=== PATIENT | male | born 1965 | race Asian ===

== ENCOUNTER 2019-09-12 11:36 | Emergency (ER) | payer OTHER ==
--- NOTE | 2019-09-12 12:11 | ED Physician Documentation ---
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 That evening he developed hives throughout his entire body. He has had hives 1 time previously 30 years ago. He does not think he is using any new cleaning equipment or protective gear that he has not used previously. He is not having any respiratory difficulty. Review of Systems Constitutional: denies: Fever, Chills, Myalgias Eyes: denies: Decreased vision Throat: denies: Sore throat Cardiac: denies: Chest pain / pressure, Palpitations Respiratory: denies: Dyspnea, Cough GI: denies: Abdominal Pain, Abdominal Swelling : denies: Dysuria Skin: reports: Rash Musculoskeletal: denies: Neck pain, Back pain, Extremity pain Neurologic: denies: Generalized weakness, Focal weakness, Numbness PD PAST MEDICAL HISTORY - Past Medical History Cardiovascular: None Respiratory: None Neuro: None Endocrine/Autoimmune: None GI: None : None HEENT: None Psych: None Musculoskeletal: None Derm: None - Past Surgical History Past Surgical History: No - Present Medications Home Medications: Ambulatory Orders Medication Instructions Recorded Confirmed predniSONE [Prednisone] 40 mg PO DAILY #10 tablet 09/12/19 - Allergies Allergies/Adverse Reactions: Allergies Allergy/AdvReac Type Severity Reaction Status Date / Time amoxicillin Allergy Unknown Verified 09/12/19 11:40 sulfamethoxazole Allergy Unknown Verified 09/12/19 11:40 [From ] trimethoprim [From ] Allergy Unknown Verified 09/12/19 11:40 - Social History Does the pt smoke?: No Smoking Status: Never smoker Does the pt drink ETOH?: No Does the pt have substance abuse?: No - Immunizations Immunizations are current?: Yes - POLST Patient has POLST: No PD ED PE NORMAL - Vitals Vital signs reviewed: Yes (hypertensive) - General General: Alert and oriented X 3, No acute distress, Well developed/nourished - HEENT HEENT: Atraumatic, PERRL, EOMI - Neck Neck: Supple, no meningeal sign, No bony TTP - Cardiac Cardiac: RRR, No murmur - Respiratory Respiratory: No respiratory distress, Clear bilaterally - Abdomen Abdomen: Soft, Non tender - Back Back: No CVA TTP, No spinal TTP - Derm Derm: Normal color, Warm and dry, Other (There are urticaria sporadically over the entire body. There is more erythema associated with the forearms and the dorsum of the hands.) - Extremities Extremities: No deformity, No edema, No calf tenderness / cord - Neuro Neuro: Alert and oriented X 3, quarter trimmer 2-12 intact, No motor deficit, No sensory deficit, Normal speech Eye Opening: Spontaneous Motor: Obeys Commands Verbal: Oriented GCS Score: 15 - Psych Psych: Normal mood, Normal affect Results - Vitals Vitals: Vital Signs - 24 hr 09/12/19 09/12/19 11:39 12:29 Temperature 37 C 37.3 C Heart Rate 100 85 Respiratory 18 24 Rate Blood Pressure 162/97 H 139/72 H O2 Saturation 98 98 Oxygen O2 Source Room air PD MEDICAL DECISION MAKING - ED course Complexity details: considered differential, d/w patient ED course: 53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 He is treated with dexamethasone here and I will prescribe a 5-day course of prednisone. Departure - Departure Disposition: 01 Home, Self Care Clinical Impression: Urticaria Condition: Stable Instructions: ED Urticaria Follow-Up: SABINO Noriega [Provider Group] Prescriptions: predniSONE [Prednisone] 40 mg PO DAILY #10 tablet Forms: Activity restrictions
[2019-09-12] MEDS: DEXAMETHASONE 10 MG/ML VIAL PO STA (12:15)
[2019-09-12] MEDS: CHERRY SYRUP 10 ML UDC PO ONE (12:15)
[2019-09-12 12:30] VITALS: BP 139/72
== END 2019-09-12 12:46 | disposition home or self-care (01) ==
LOC: ED 11:36
DX: L50.9 Urticaria, unspecified (principal)
CPT/HCPCS: 1040M; 99282; 99284

== ENCOUNTER 2021-12-03 12:01 | Day surgery (SDC) | payer OTHER ==
[~2021-12-03 12:01] MED LIST: ACETAMINOPHEN 500 MG TABLET PO ONE; CEFAZOLIN SODIUM IN 0.9 % NACL 2 GM/50 ML BAG IV ONE; CELECOXIB 100 MG CAPSULE PO ONE; DEXAMETHASONE 10 MG/ML VIAL ONE; LIDOCAINE-MPF 2% 5 ML VIAL ONE; MIDAZOLAM 2 MG/2 ML VIAL ONE; ROPIVACAINE 0.5% PF 20 ML AMPULE ONE; fentaNYL 100 MCG/2 ML VIAL ONE
[2021-12-03] MEDS ORDERED: LACTATED RINGERS 1,000 ML IV ONE ×2 (12:02→13:41)
[2021-12-03] MEDS ORDERED: PROPOFOL 200 MG/20 ML VIAL IVP ONE (12:02)
[2021-12-03] MEDS ORDERED: BUPIVACAINE 0.5% PF 30 ML VIAL ONE (12:04)
--- NOTE | 2021-12-03 12:14 | ANESTHESIA ---
Pre-Anesthesia VS, & Labs - Diagnosis fx L distal radius - Procedure closed reduction Internal fixation L distal radius Height: 5 ft 8 in - NPO >8 hours - Lab Results Lab results reviewed: Yes Home Medications and Allergies Allergies/Adverse Reactions: Allergies Allergy/AdvReac Type Severity Reaction Status Date / Time amoxicillin Allergy Unknown Verified 11/25/21 12:49 sulfamethoxazole Allergy Unknown Verified 11/25/21 12:49 [From ] trimethoprim [From ] Allergy Unknown Verified 11/25/21 12:49 Anes History & Medical History - Anesthetic History Anesthesia Complications: reports: No previous complications Family history of Anesthesia Complications: Denies Family history of Malignant Hyperthermia: Denies - Medical History Cardiovascular: reports: None Pulmonary: reports: None Gastrointestinal: reports: None Urinary: reports: None Neuro: reports: None Musculoskeletal: reports: None Endocrine/Autoimmune: reports: None Blood Disorders: reports: None Skin: reports: None Smoking Status: Never smoker - Surgical History General: reports: Colonoscopy Orthopedic: reports: Other (bunion) Exam General: Alert, Oriented x3, Cooperative Mouth Openin Fingerbreadth Neck Mobility: Normal Mallampati classification: II Thyromental Distance: 4-6 cm Respiratory: Lungs clear, Normal breath sounds, No respiratory distress Cardiovascular: Regular rate Neurological: Normal speech Mental/Cognitive Status: Alert/Oriented X3, Normal for patient Cognitive Status: Within normal limits Plan Anesthesia Type: General Consent for Procedure(s) Verified and Reviewed: Yes Code Status: Attempt Resuscitation ASA classification: 2-Mild systemic disease Is this case an emergency?: No
[2021-12-03] MEDS ORDERED: NALOXONE 0.4 MG/ML VIAL IVP PRN (12:18)
[2021-12-03] MEDS ORDERED: fentaNYL 100 MCG/2 ML VIAL IVP PRN (12:18)
[2021-12-03] MEDS ORDERED: METOCLOPRAMIDE 10 MG/2 ML VIAL IVP PRN (12:18)
[2021-12-03] MEDS ORDERED: HYDROmorphone 0.5 MG/0.5 ML SYRINGE IVP PRN (12:18)
[2021-12-03] MEDS ORDERED: MORPHINE 2 MG/ML CARPUJECT IVP PRN (12:18)
[2021-12-03] MEDS ORDERED: ONDANSETRON 4 MG/2 ML VIAL IVP PRN (12:18)
[2021-12-03] MEDS ORDERED: ATROPINE ABBOJECT 1 MG/10 ML SYRINGE IVP PRN (12:18)
[2021-12-03] MEDS ORDERED: ePHEDrine 50 MG/ML VIAL IVP PRN (12:18)
[2021-12-03] MEDS ORDERED: LACTATED RINGERS 1,000 ML IV SCH (13:00)
[2021-12-03] MEDS ORDERED: LIDOCAINE-MPF 2% 5 ML VIAL ONE (13:07)
--- NOTE | 2021-12-03 13:40 | OPERATIVE REPORT ---
Operative Report - General Procedure Date: 12/03/21 Planned Procedure: Closed reduction left distal radius and percutaneous pinning left wrist Pre-Op Diagnosis: Displaced, closed, left distal radius fracture Procedure Performed: Closed reduction left distal radius fracture, percutaneous K wire fixation Post Op Diagnosis: Same as preoperative diagnosis - Procedure Note Primary Surgeon: Prashanth Willams MD Secondary Surgeon: Mary Ontiveros PAC Anesthesia Provider: Dusty Harrell CRNA Anesthesia Technique: General LMA Estimated Blood Loss (mL): 1 Indications: This is a 56-year-old man with a fall from a ladder onto outstretched left hand. The injury happened little over a week ago. He had localized pain and dysfunction to left wrist. He had limited motion and tenderness left distal radius, skin intact, neurovascular intact. His x-ray showed a displaced shortened and angulated fracture left distal radius. Treatment options were discussed, informed consent obtained, patient agreeable to procedure with K wire fixation. Findings: Displaced mildly comminuted fracture left distal radius with shortening and angulation Complications: None - Other Other Information/Narrative: The patient was brought to the operating room and was placed in a supine position with the Left arm on a arm extension table. He received a general anesthetic. The Leftupper extremity was prepped and draped in a sterile manner in the usual fashion. The C-arm image intensifier was utilized and covered with a sterile drape. A timeout procedure was performed by the entire operating room team and all were in agreement. Finger traps were applied to all 5 fingers and a traction bow as well. Longitudinal traction was appliedWith a volar sterile bump to allow for palmar angulation and ulnar deviation as well as direct manipulation of the fracture site. The C-arm image intensifier showed good alignment and a percutaneous pinning was performed with 0.062 K wires. The bare area of the radial styloid was engaged and pin was inserted from the styloid across the fracture to achieve bicortical fixation. An additional K wire from the radial styloid was also inserted to provide 2 bicortical K wires from the radial styloid. One additional K wires were inserted from the ulnar corner of the distal radius distally. A fourth K wire was inserted paralleling the radiocarpal joint and was inserted from the radial aspect of the distal radius. Biplanar and oblique imaging was obtained and there was good alignment of the fixation and fracture. The K wires were cut external to skin and covered with sterile balls. A well- padded short arm fiberglass splint was applied with gauze padding around the K wires. He tolerated the procedure well. No tourniquet was utilized.A physician shipping and receiving assistant was medically necessary to help with prepping and draping, positioning, protection of vital structures, assistance during the procedure including wound closure, Fracture reduction,dressing and/or splinting.
[2021-12-03] MEDS ORDERED: oxyCODONE 5 MG TABLET PO PRN (13:41)
[2021-12-03] MEDS ORDERED: ROPIVACAINE 0.5% PF 30 ML VIAL SUBQ ONE (13:43)
[2021-12-03] MEDS ORDERED: oxyCODONE 5 MG TABLET ONE (14:53)
--- NOTE | 2021-12-03 15:22 | ANESTHESIA POST OP EVALUATION ---
Anesthesia Post Eval - Post Anesthesia Eval Vitals: Last Vital Signs Temp 37.0 C 12/03/21 14:40 Pulse 64 12/03/21 14:40 Resp 16 12/03/21 14:40 BP 176/96 H 12/03/21 14:40 Pulse Ox 99 12/03/21 14:40 CV Function Including HR & BP: Stable Pain Control: Satisfactory Nausea & Vomiting: Negative Mental Status: Baseline Respiratory Status: Airway Patent Hydration Status: Satisfactory Anesthesia Complications: None
[2021-12-03 15:40] VITALS: BP 169/90
--- NOTE | 2021-12-03 16:45 | XRAY Report ---
PROCEDURE: OR C-Arm Procedure INDICATIONS: or 2, 1200 start TECHNIQUE: Intraoperative fluoroscopic support for open reduction and internal fixation of the left w rist COMPARISON: 11/25/2021 FINDINGS: There are 2 intraoperative fluoroscopic images demonstrating interval percutaneous pin fixation of co mminuted, slightly impacted fracture of the distal left radius. No evidence for acute hardware compli cation. Alignment appears anatomic. IMPRESSION: Intraoperative fluoroscopic support for open reduction internal fixation of comminuted distal left ra dial fracture. Please refer to operative note for further details. Reviewed by: Dionte Spears MD on 12/03/2021 4:43 PM PDT Approved by: Dionte Spears MD on 12/03/2021 4:43 PM PDT Station ID: [id number]
== END 2021-12-03 12:02 | disposition home or self-care (01) ==
LOC: SDS 12:01
PROVIDERS: ATTEND Orthopaedic Surgery
DX: S52.532A Colles' fracture of left radius, initial encounter for closed fracture (principal); W11.XXXA Fall on and from ladder, initial encounter; Y93.E9 Activity, other interior property and clothing maintenance; Y92.007 Garden or yard of unspecified non-institutional (private) residence as the place of occurrence of the external cause
CPT/HCPCS: 25606; A9270; J0690; J7120

== ENCOUNTER 2022-01-15 08:00 | Outpatient (CLI) | payer OTHER ==
--- NOTE | 2022-01-15 16:34 | XRAY Report ---
PROCEDURE: Wrist 3 View LT INDICATIONS: WRIST FX POST PINN REMOVAL TECHNIQUE: 3 views of the wrist were acquired. COMPARISON: 11/25/2021 FINDINGS: Bones: Comminuted fracture of the distal radius shows evidence of bridging callus. Fracture lines sti ll visible however. Soft tissues: No suspicious soft tissue calcifications. IMPRESSION: Healing intra-articular distal radial fracture Reviewed by: Jorge Ramirez MD on 01/15/2022 3:32 PM AKDT Approved by: Jorge Ramirez MD on 01/15/2022 3:32 PM AKDT Station ID: [id number]
== END 2022-01-15 23:59 | disposition home or self-care (01) ==
LOC: DI.WOS 08:00
PROVIDERS: ATTEND Orthopaedic Surgery
DX: S52.532D Colles' fracture of left radius, subsequent encounter for closed fracture with routine healing (principal)